=== PATIENT | male | born 1965 | race Two or more races ===

== ENCOUNTER 2025-02-13 07:54 | Outpatient (RCR) | payer MEDICAID, SELFPAY ==
--- NOTE | 2025-01-19 16:43 | CTCTXPLN_ITS ---
[facility] [place] [address] [address] [place], [place] [address] Physician Clinical Treatment Planning Note Date of Service: 01/19/2025 Name: HARMONY THURMAN : 1965 The patient has agreed to proceed with Radiation therapy. Tests and supporting medical records were interpreted to assist in defining the tumor location and extent of disease. Further imaging will be necessary to contour and delineate the volume to which the XRT will be provided. A. Treatment Intent: curative B. Modality: 10 MV C. Requested Technique:VMAT D. Treatment Site: pelvis E. Critical structures to be contoured on plan: anorectal lymph nodes F. In order to accomplish this plan, I am ordering/Prescribing the followin. Simulations (s) will be performed to accomplish a reproducible treatment position, to determine optimal treatment portals/beam arrangements, to design beam modifying devices and verify treatment portals on patient prior to the commencement of Radiation Therapy.vaklok 2. Devices; for immobilization and beam shaping: vaklok 3. CT Guidance for placement of XRT fowler Scan area: 4. Portal images Frequency: 5. Invivo transit dose measurement once per week on all VMAT patients. 6. Special Physics Consult Requested for: 7. Other requests: special procedure chemo/XRT G. Dose Objectives:curative Electronically signed by: Fabián Lindo M.D. 01/19/2025 4:40 PM
--- NOTE | 2025-01-19 16:46 | CTCTXPLNST_ITS ---
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 Pt Treatment Intent: curative palliative other: Stage: Procedure CPT # Ordered Spec. Procedure 38110 1 Gallegos Complex (set-up) 79730 pelvis 2 Gallegos Simple 13959 IMRT Plan 19815 1 MLC Devices VMAT 12230 3 Gallegos 3 D 07228 TRTMT dev Complex 22760 vaklok 1 TRTMT dev simple 85900 Basic Daniel 81455 10 Special Dosimetry 61378 Spec Physics 41575 Port Films 48425 SRS Cranial/1FX 72543 SBR 5 FX or Less /ex: 5 = 5 fx 14998 IMRT Simple 54885 5000 25 IMRT Complex 34615 IGRT 25998 Rad del com 6- 91144 Rad del com - 82880 1000 10 Cont Med Physics 15889 6 Treatment Planning 60944 1 Rad del com 20 mev 73269 Rad del inter 04-25 48744 Rad del inter 10-04 86375 Rad del simple 6 13021 Rad del simple 10-04 87739 Special Port Plan 92089 TRTMT dev inter 47787 Isodose Complex 18268 Isodose simple 13986 Resp Motion Mgmt Simulation 73909 Placement of Fiducial Markers 92396 Electronically Signed By: Fabián Lindo MD, DABR 01/19/2025 4:44 PM
== END 2025-02-13 23:59 | disposition home or self-care (01) ==
LOC: SCTC 07:54
PROVIDERS: PCP Internal Medicine Hematology & Oncology; Referring Provider Internal Medicine Hematology & Oncology; Visit Provider Radiology Therapeutic Radiology
DX: Z51.0 Encounter for antineoplastic radiation therapy (principal); C21.8 Malignant neoplasm of overlapping sites of rectum, anus and anal canal; Z93.3 Colostomy status; R53.0 Neoplastic (malignant) related fatigue
CPT/HCPCS: 77014; 77290; 77300; 77301; 77334; 77336; 77338; 77385; 99213; G0463

== ENCOUNTER 2025-03-13 11:27 | Outpatient (RCR) | payer MEDICAID, SELFPAY ==
--- NOTE | 2025-02-27 09:28 | CTCTRTNOTE_ITS ---
[facility] [address] [place], [place] [address] Weekly Management Date: 02/27/2025 ?? Name: HARMONY THURMAN : 1965 A. Patient is currently at 3240 cGy. B. Patient is tolerating treatment well. C. Some loose bowels. PET scan shows prominent groin and rectal mass. D. Resume radiation therapy. Will review PET/CT after the CD sent here. Electronically signed by: Fabián Lindo M.D. 02/27/2025 9:26 AM
== END 2025-03-15 23:59 | disposition home or self-care (01) ==
LOC: SCTC 11:27
PROVIDERS: Referring Provider Internal Medicine Hematology & Oncology; Visit Provider Radiology Therapeutic Radiology
DX: Z51.0 Encounter for antineoplastic radiation therapy (principal); C21.8 Malignant neoplasm of overlapping sites of rectum, anus and anal canal
CPT/HCPCS: 77290; 77300; 77332; 77336; 77385

== ENCOUNTER 2025-04-12 08:54 | Outpatient (RCR) | payer MEDICAID, SELFPAY ==
--- NOTE | 2025-03-20 09:11 | CTCTRTNOTE_ITS ---
[facility] [address] [place], [place] [address] Weekly Management Date: 03/20/2025 ?? Name: HARMONY THURMAN : 1965 A. Patient is currently at 50-20 cGy. B. Patient is tolerating treatment well. C. Patient is having the following side effects: Some anal discomfort.. Not needing rest. D. Resume radiation therapy. Patient would like to finish XRT this week. Electronically signed by: Fabián Lindo M.D. 03/20/2025 9:09 AM
== END 2025-04-15 23:59 | disposition home or self-care (01) ==
LOC: SCTC 08:54
PROVIDERS: PCP Physician Assistant; Referring Provider Radiology Therapeutic Radiology; Visit Provider Radiology Therapeutic Radiology
DX: Z51.0 Encounter for antineoplastic radiation therapy (principal); C21.8 Malignant neoplasm of overlapping sites of rectum, anus and anal canal
CPT/HCPCS: 77336; 77412; 99212; G0463